=== PATIENT | female | born 1955 | race Caucasian/White ===

== ENCOUNTER → 2023-07-15 16:38 | Outpatient (REF) | payer OTHER, SELFPAY | LOC: HWRAD 16:38 | PROVIDERS: ATTENDING PHYSICIAN Internal Medicine | DX: R06.02 Shortness of breath (principal); R05.9 Cough, unspecified; R07.89 Other chest pain | CPT/HCPCS: 71046 ==

== ENCOUNTER → 2023-12-25 14:02 | Outpatient (REF) | payer OTHER, SELFPAY | LOC: MRI 3T 14:02 | PROVIDERS: ATTENDING PHYSICIAN Student in an Organized Health Care Education/Training Program; FAMILY PHYSICIAN Internal Medicine | DX: M79.671 Pain in right foot (principal) | CPT/HCPCS: 73721 ==